=== PATIENT | male | born 1995 | race Caucasian/White ===

== ENCOUNTER → 2016-04-10 | Day surgery (SDC) | payer OTHER ==
[~2016-04-10] MED LIST: ACETAMINOPHEN 1000 MG/100 ML VIAL IV ONE; BACT2OIN TOP; BACT800T5 PO; BUPIVACAINE/EPINEPHRINE 0.25% PF 30 ML VIAL ONE; DOXY100T PO; KETOROLAC TROMETHAMINE 30 MG/ML (IVP) VIAL IV PUSH ONE; LACTATED RINGER'S 1000 ML INJ 1,000 ML ONE; MEPERIDINE HCL 50 MG/ML VIAL ONE; MIDAZOLAM HCL 2 MG/2 ML VIAL ONE; ONDANSETRON HCL 4 MG/2 ML VIAL IV PUSH ONE; PROPOFOL 200 MG/20 ML AMP IV ONE; ceFAZolin 2 GM PREMIX 50 ML ONE; oxyCODONE/ACETAMINOPHEN 5 MG/325 MG TAB ONE
--- NOTE | 2016-04-10 14:34 | TN ---
cc: ROSANGELA COSTA MD DATE OF SURGERY: 04/10/2016. PREOPERATIVE DIAGNOSIS: Right inguinal hernia. POSTOPERATIVE DIAGNOSIS: Right inguinal hernia. OPERATIVE PROCEDURE PERFORMED: Laparoscopic repair of right inguinal hernia with mesh. SURGEON: Rosangela Costa MD. ADJUNCT INSTRUCTOR: JARROD Ferrer. ANESTHESIA: General anesthesia via LMA. SPECIMEN: None. ESTIMATED BLOOD LOSS: 5 cc. COMPLICATIONS: No apparent complications. OPERATIVE FINDINGS: The patient had a large indirect right inguinal hernia, which was fully reduced. DESCRIPTION OF THE PROCEDURE IN DETAIL: The patient was taken to the operating room and placed in supine position. General anesthesia via LMA was induced. The abdomen was prepped and draped in usual sterile fashion. A surgical time-out was performed to verify correct patient, procedure and site. Local anesthetic was injected to the skin and subcutaneous tissue inferior to the umbilicus. A 1 or 2 cm transverse incision was made. Blunt dissection was carried out down to the underlying fascia and the anterior fascia was vertically incised. The posterior rectus space was developed and the dissecting balloon placed. The dissecting balloon was inflated and then removed. The structural balloon was placed and the extraperitoneal space insufflated to 11 mmHg with CO2 gas. Two 5-mm ports were placed, one in the suprapubic and one in the lower midline. Attention was turned to the right inguinal space. Kip's ligament was identified as well as the epigastric vessels and the iliac vessels. The lateral space was dissected and Kip's ligament was cleared of some fatty tissue. There was no evidence of the direct or femoral hernia. There was a large indirect hernia with a chronic thickened sac which was fully reduced taking care to preserve the spermatic cord structures. The inguinal space was then ready for mesh placement. A 15 x 15 mm piece of Ultrapro Advanced Mesh was cut to 12 x 15 cm and placed in the right inguinal space. It was secured using the ProTack tacking device at [place]opers ligament anteromedially at the rectus musculature superolaterally and superiorly just lateral to the epigastric vessels. There was wide coverage of the entire inguinal floor and the peritoneum was assured to be overlying the inferior portion of the mesh. The extraperitoneal space was then desufflated and trocars removed. There had been a couple of very small holes and the peritoneum and therefore I placed a Veress needle through the posterior fascia to desufflate the intraperitoneal space. The anterior fascia was then closed with a running 2-0 Vicryl suture. Skin was closed with subcuticular 4-0 Monocryl as well as Dermabond. The patient tolerated the procedure well, was extubated and taken to the post-anesthesia care unit in stable condition. MD JACINTO Fernandez/ARY /2:20 PM /2:27 PM
== END | disposition home or self-care (01) ==
LOC: ESDC 09:36
PROVIDERS: ATTEND Surgery
DX: K40.90 Unilateral inguinal hernia, without obstruction or gangrene, not specified as recurrent (principal)
CPT/HCPCS: 00840; 49650; C1727; C1781; J0131; J0690; J1885; J2175; J2250; J2405; J3010; J7120

== ENCOUNTER 2017-07-13 11:29 | Emergency (ER) | payer OTHER ==
[~2017-07-13 11:29] MED LIST changes: -ACETAMINOPHEN 1000 MG/100 ML VIAL IV ONE; -BUPIVACAINE/EPINEPHRINE 0.25% PF 30 ML VIAL ONE; -KETOROLAC TROMETHAMINE 30 MG/ML (IVP) VIAL IV PUSH ONE; -LACTATED RINGER'S 1000 ML INJ 1,000 ML ONE; -MEPERIDINE HCL 50 MG/ML VIAL ONE; -MIDAZOLAM HCL 2 MG/2 ML VIAL ONE; -ONDANSETRON HCL 4 MG/2 ML VIAL IV PUSH ONE; -PROPOFOL 200 MG/20 ML AMP IV ONE; -ceFAZolin 2 GM PREMIX 50 ML ONE; -oxyCODONE/ACETAMINOPHEN 5 MG/325 MG TAB ONE
[2017-07-13 11:39] VITALS: BP 144/74; PULSE 73; RESP 18; TEMP 98; O2SAT 99
--- NOTE | 2017-07-13 13:02 | RADRPT ---
EXAM DATE: 07/13/2017 12:55 PM EDT AGE/SEX: 21 years / Male INDICATIONS: Tripped and fell, left knee pain. CLINICAL DATA: This is the patient's initial encounter. Patient reports that signs and symptoms have been present for 2 days and indicates a pain score of 10/10. MEDICAL/SURGICAL HISTORY: None. None. COMPARISON: [facility], KNEE LEFT COMPLETE (4VWS), 04/14/2012. . FINDINGS: 4 views of the left knee demonstrate no fracture or dislocation. Mineralization is normal. No joint e ffusion is identified. There is stable fragmentation and hypertrophic ossification at the superior as pect of the tibial tuberosity. No soft tissue abnormality or radiopaque foreign body is identified. CONCLUSION: No acute left knee abnormality is identified. Electronically signed by: Wilfred Andersen MD 07/13/2017 1:01 PM EDT
--- NOTE | 2017-07-13 13:03 | RADRPT ---
EXAM DATE: 07/13/2017 12:52 PM EDT AGE/SEX: 21 years / Male INDICATIONS: Tripped and fell, right ankle pain and swelling. CLINICAL DATA: This is the patient's initial encounter. Patient reports that signs and symptoms have been present for 2 days and indicates a pain score of 3/10. MEDICAL/SURGICAL HISTORY: None. None. COMPARISON: No prior exams available for comparison. FINDINGS: There is soft tissue swelling over the lateral malleolus. No acute fracture or dislocation. No bony d estructive changes. CONCLUSION: Soft tissue swelling over the lateral malleolus. No acute findings. Electronically signed by: Saulo Joiner MD 07/13/2017 1:02 PM EDT
--- NOTE | 2017-07-13 13:14 | PD ---
HPI Chief Complaint: Musculoskeletal Complaint Time Seen by Provider: 11:52 Travel History International Travel<30 days: No Contact w/Intl Traveler<30days: No Traveled to known affect area: No History of Present Illness HPI 21-year-old male presents emergency department for evaluation of right ankle left knee pain that occurred after playing basketball yesterday. Says that he jumped up and landed inverting his right ankle landing on his left knee. Says his left knee is more painful than his right ankle at this point. Patient says that the pain is located in the inferior portion of the patella but is mild to moderate in severity, nonradiating, worse with flexion. He denies any clicks or pops. Says his right knee is tender palpation on the medial lateral aspects of the ankle. Pain is worse with movement that decreases with rest. Patient is weightbearing but says this is somewhat painful. Denies numbness or tingling the extremities. Denies head, neck, back trauma. PFSH Past Medical History Diminished Hearing: No Musculoskeletal: Yes (PREVIOUS FRACTURE RT METATARSAL) Immunizations Current: Yes Social History Alcohol Use: Yes Tobacco Use: No Substance Use: No Allergies-Medications (Allergen,Severity, Reaction): Coded Allergies: No Known Allergies (Verified Adverse Reaction, Unknown, 07/13/17) Reported Meds & Prescriptions Reported Meds & Active Scripts Active Review of Systems Except as stated in HPI: all other systems reviewed are Neg Physical Exam Narrative GENERAL: Well-developed, nourished in no apparent distress SKIN: Focused skin assessment warm/dry. HEAD: Atraumatic. Normocephalic. EYES: Pupils equal and round. No scleral icterus. No injection or drainage. ENT: No nasal bleeding or discharge. Mucous membranes pink and moist. NECK: Trachea midline. No JVD. No midline tenderness CARDIOVASCULAR: Regular rate and rhythm. No murmur appreciated. RESPIRATORY: No accessory muscle use. Clear to auscultation. Breath sounds equal bilaterally. MUSCULOSKELETAL: No obvious deformities. No clubbing. No cyanosis. No edema. Right ankle-edema and ecchymosis over lateral malleolus greater than medial malleolus. Full range of motion without clicks or pops. Neurovascular intact. Left knee-tenderness palpation over the inferior portion of the patella without significant edema. No deformities or crepitus. Limited range of motion secondary to pain. Neurovascular intact left lower extremity. BACK: No CVA tenderness. No rash. No point tenderness on palpation of the spine. NEUROLOGICAL: Awake and alert. No obvious cranial nerve deficits. Motor grossly within normal limits. Normal speech. PSYCHIATRIC: Appropriate mood and affect; insight and judgment normal. Data Data Last Documented VS Vital Signs Date Time Temp Pulse Resp B/P (MAP) Pulse Ox O2 Delivery O2 Flow Rate FiO2 07/13/17 11:39 98.0 73 18 144/74 (97) 99 Orders Orders Knee, Complete (4vws) (07/13/17 ) Ankle, Complete (Eyx3ntd) (07/13/17 ) Support Splint (07/13/17 13:14) Ed Discharge Order (07/13/17 13:17) MDM Medical Decision Making Medical Screen Exam Complete: Yes Emergency Medical Condition: Yes Differential Diagnosis Right ankle-contusion, bursitis, cellulitis, fracture, osteonecrosis, avascular necrosis, sprain, strain Left knee Narrative Course 21-year-old male presents emergency department for evaluation of right ankle left knee pain that occurred after playing basketball yesterday. Says that he jumped up and landed inverting his right ankle landing on his left knee. Says his left knee is more painful than his right ankle at this point. Patient says that the pain is located in the inferior portion of the patella but is mild to moderate in severity, nonradiating, worse with flexion. He denies any clicks or pops. Says his right knee is tender palpation on the medial lateral aspects of the ankle. Pain is worse with movement that decreases with rest. Patient is weightbearing but says this is somewhat painful. Denies numbness or tingling the extremities. Denies head, neck, back trauma. Vital signs stable. Last Impressions Knee X-Ray 07/13/17 0000 Signed Impressions: CONCLUSION: No acute left knee abnormality is identified. Ankle X-Ray 07/13/17 0000 Signed Impressions: CONCLUSION: Soft tissue swelling over the lateral malleolus. No acute findings. Patient will be placed in an ankle stirrup and Claus wrap of the left knee. Advised that he should follow-up with orthopedist especially if her symptoms do not improve. Patient should be weightbearing as tolerated. Tylenol or Motrin per package instructions for pain. Diagnosis Primary Impression: Ankle sprain Qualified Codes: S93.401A - Sprain of unspecified ligament of right ankle, initial encounter Additional Impression: Knee contusion Qualified Codes: S80.02XA - Contusion of left knee, initial encounter Referrals: Orthopedist Additional Instructions: Use ice or heat for symptom relief. If no contraindications, you may use Tylenol or Motrin per package instructions for your pain. Elevate the joint above the heart to reduce swelling. You may use compression with Claus wrap or similar to reduce swelling. If symptoms persist or worsen, return to the emergency department. Follow up with your primary care physician within 2 days. Disposition: 01 DISCHARGE HOME Condition: Stable Dipti Pan July 13, 2017 13:13
== END 2017-07-13 13:35 | disposition home or self-care (01) ==
LOC: PHEFT 11:29
DX: S93.401A Sprain of unspecified ligament of right ankle, initial encounter (principal); S80.02XA Contusion of left knee, initial encounter; X50.1XXA Overexertion from prolonged static or awkward postures, initial encounter; Y93.67 Activity, basketball
CPT/HCPCS: 73564; 73610; 99283; L1906